=== PATIENT | female | born 1950 | race African-American/Black ===

== ENCOUNTER 2022-10-27 06:44 | Inpatient (IN) | payer OTHER ==
[2022-10-27] MEDS ORDERED: SODIUM CHLORIDE 500 ML IV STA (08:14)
[2022-10-27 08:47] LABS: BASO % 0.7 % (0-2.0); EOS % 0.1 % (0-4.5); HEMATOCRIT 18.8 % (32.4-45.2); LYMPH % 14.6 % (8-40); MCH 21.9 pg (25.7-33.7); MCHC 29.6 g/dl (32.0-36.0); MEAN PLT VOLUME 7.9 fl (7.5-11.1); MONO % 6.7 % (3.8-10.2); NEUT % 77.9 % (42.8-82.8); PLATELET COUNT 369 10^3/uL (134-434); RBC 2.54 M/mm3 (3.60-5.2); RDW 18.3 % (11.6-15.6); WHITE BLOOD COUNT 7.7 K/mm3 (4.0-10.0)
[2022-10-27 08:53] LABS: HEMOGLOBIN 5.6 GM/dL (10.7-15.3)
[2022-10-27 09:03] LABS: CALCIUM 9.6 mg/dL (8.5-10.1); POTASSIUM 4.4 mmol/L (3.5-5.1)
[2022-10-27 09:05] LABS: ALBUMIN 3.9 g/dl (3.4-5.0)
[2022-10-27 09:08] LABS: BLOOD UREA NITROGEN 30.3 mg/dL (7-18); CREATININE 1.6 mg/dL (0.55-1.3)
[2022-10-27 09:09] LABS: TOT PROT 6.5 g/dl (6.4-8.2)
[2022-10-27 09:10] LABS: BILIRUBIN,TOTAL 0.6 mg/dL (0.2-1)
[2022-10-27] MEDS ORDERED: ALBUTEROL SO4 2.5/IPRATROPIUM 0.5 INH SOL 3 ML VIAL.NEB. NEB ONE ×2 (09:28→09:34)
[2022-10-27 10:19] LABS: ANISOCYTOSIS 3+; MACROCYTOSIS 0; OVALOCYTE 1+; TARGET CELLS 1+
[2022-10-27 12:30] VITALS: BMI 21.2
[2022-10-27] MEDS ORDERED: ALBUTEROL SO4 HFA INHALER IH PRN (16:10)
[2022-10-27] MEDS: predniSONE 10 MG TABLET (UD) PO SCH (16:45)
[2022-10-27] MEDS: PANTOPRAZOLE 40 MG TABLET PO SCH (16:45)
[2022-10-27] MEDS: ATORVASTATIN CA 10 MG TABLET (FP) PO SCH (22:06)
[2022-10-28 09:12] LABS: BASO % 0.8 % (0-2.0); EOS % 0.3 % (0-4.5); HEMATOCRIT 25.6 % (32.4-45.2); HEMOGLOBIN 8.1 GM/dL (10.7-15.3); LYMPH % 24.7 % (8-40); MCH 24.3 pg (25.7-33.7); MCHC 31.6 g/dl (32.0-36.0); MEAN CELL VOLUME 76.9 fl (80-96); MEAN PLT VOLUME 7.9 fl (7.5-11.1); MONO % 9.7 % (3.8-10.2); NEUT % 64.5 % (42.8-82.8); PLATELET COUNT 309 10^3/uL (134-434); RBC 3.34 M/mm3 (3.60-5.2); RDW 20.2 % (11.6-15.6); WHITE BLOOD COUNT 8.8 K/mm3 (4.0-10.0)
[2022-10-28 09:15] LABS: INR 1.07 (0.83-1.09); PROTHROMBIN TIME (PATIENT) 12.4 SEC (9.7-13.0)
[2022-10-28 09:26] LABS: POTASSIUM 3.8 mmol/L (3.5-5.1)
[2022-10-28 09:35] LABS: ALBUMIN 3.6 g/dl (3.4-5.0)
[2022-10-28 09:37] LABS: BLOOD UREA NITROGEN 17.4 mg/dL (7-18)
[2022-10-28 09:40] LABS: BILIRUBIN,TOTAL 1.4 mg/dL (0.2-1); TOT PROT 6.3 g/dl (6.4-8.2)
[2022-10-28 09:47] LABS: CALCIUM 9.7 mg/dL (8.5-10.1)
[2022-10-28] MEDS: LISINOPRIL 20 MG TABLET PO SCH (09:54)
[2022-10-28] MEDS: amLODIPine BESYLATE 5 MG TABLET (FP) PO SCH (09:54)
[2022-10-28] MEDS: PANTOPRAZOLE 40 MG TABLET PO SCH (09:55)
[2022-10-28] MEDS: predniSONE 10 MG TABLET (UD) PO SCH (09:55)
[2022-10-28] MEDS ORDERED: PATIENT'S OWN MEDICATION (NON-FORMULARY) (Amlodipine Besylate/Benazepril [Lotrel 5-40 Mg C PO SCH (10:00)
[2022-10-28] MEDS ORDERED: PEG 3350/NA SULF BICARB CL/KCL 4000 ML SOLN.RECON PO ONE (14:50)
[2022-10-28] MEDS ORDERED: BISACODYL 5 MG TABLET.DR (FP) PO ONE (20:00)
[2022-10-28] MEDS ORDERED: IRON SUCROSE INJECTION 200 MG in SODIUM CHLORIDE 90 ML IVPB ONE (21:00)
[2022-10-28] MEDS: ATORVASTATIN CA 10 MG TABLET (FP) PO SCH (22:08)
[2022-10-29 08:32] LABS: BASO % 0.8 % (0-2.0); EOS % 2.1 % (0-4.5); HEMATOCRIT 25.7 % (32.4-45.2); HEMOGLOBIN 8.2 GM/dL (10.7-15.3); INR 1.16 (0.83-1.09); LYMPH % 26.1 % (8-40); MCH 24.1 pg (25.7-33.7); MEAN CELL VOLUME 75.5 fl (80-96); MEAN PLT VOLUME 7.8 fl (7.5-11.1); MONO % 10.8 % (3.8-10.2); NEUT % 60.2 % (42.8-82.8); PLATELET COUNT 301 10^3/uL (134-434); PROTHROMBIN TIME (PATIENT) 13.4 SEC (9.7-13.0); RBC 3.41 M/mm3 (3.60-5.2); RDW 20.6 % (11.6-15.6); WHITE BLOOD COUNT 8.3 K/mm3 (4.0-10.0)
[2022-10-29 08:50] LABS: POTASSIUM 3.7 mmol/L (3.5-5.1)
[2022-10-29 08:52] LABS: CALCIUM 9.5 mg/dL (8.5-10.1)
[2022-10-29 08:53] LABS: ALBUMIN 3.6 g/dl (3.4-5.0)
[2022-10-29 08:58] LABS: BILIRUBIN,TOTAL 1.2 mg/dL (0.2-1); TOT PROT 6.1 g/dl (6.4-8.2)
[2022-10-29] MEDS ORDERED: FENTANYL CITRATE/PF 50 MCG/ML VIAL ONE (09:20)
[2022-10-29] MEDS: LISINOPRIL 20 MG TABLET PO SCH (11:18)
[2022-10-29] MEDS: PANTOPRAZOLE 40 MG TABLET PO SCH (11:21)
[2022-10-29] MEDS: amLODIPine BESYLATE 5 MG TABLET (FP) PO SCH (11:21)
[2022-10-29] MEDS: predniSONE 5 MG TABLET (UD) PO SCH (11:21)
[2022-10-29] MEDS: ATORVASTATIN CA 10 MG TABLET (FP) PO SCH (22:15)
[2022-10-30 08:15] LABS: BASO % 0.6 % (0-2.0); EOS % 2.8 % (0-4.5); HEMATOCRIT 28.3 % (32.4-45.2); HEMOGLOBIN 8.9 GM/dL (10.7-15.3); LYMPH % 24.9 % (8-40); MCH 24.7 pg (25.7-33.7); MCHC 31.6 g/dl (32.0-36.0); MEAN CELL VOLUME 78.2 fl (80-96); MEAN PLT VOLUME 8.2 fl (7.5-11.1); MONO % 9.2 % (3.8-10.2); NEUT % 62.5 % (42.8-82.8); PLATELET COUNT 326 10^3/uL (134-434); RBC 3.62 M/mm3 (3.60-5.2); RDW 21.4 % (11.6-15.6); WHITE BLOOD COUNT 9.9 K/mm3 (4.0-10.0)
[2022-10-30] MEDS: predniSONE 5 MG TABLET (UD) PO SCH (10:52)
[2022-10-30] MEDS: PANTOPRAZOLE 40 MG TABLET PO SCH (10:52)
[2022-10-30] MEDS: amLODIPine BESYLATE 5 MG TABLET (FP) PO SCH (10:53)
[2022-10-30] MEDS: LISINOPRIL 20 MG TABLET PO SCH (10:53)
[2022-10-30] MEDS ORDERED: IRON SUCROSE INJECTION 200 MG in SODIUM CHLORIDE 90 ML IVPB ONE (14:00)
[2022-10-30] MEDS: ATORVASTATIN CA 10 MG TABLET (FP) PO SCH (22:13)
[2022-10-31 08:02] LABS: HEMATOCRIT 25.2 % (32.4-45.2); HEMOGLOBIN 7.9 GM/dL (10.7-15.3); MCH 24.4 pg (25.7-33.7); MCHC 31.3 g/dl (32.0-36.0); MEAN CELL VOLUME 77.9 fl (80-96); MEAN PLT VOLUME 7.9 fl (7.5-11.1); PLATELET COUNT 279 10^3/uL (134-434); RBC 3.24 M/mm3 (3.60-5.2); WHITE BLOOD COUNT 8.7 K/mm3 (4.0-10.0)
[2022-10-31 09:26] LABS: ANISOCYTOSIS 1+; MACROCYTOSIS 0
[2022-10-31] MEDS: PANTOPRAZOLE 40 MG TABLET PO SCH (10:39)
[2022-10-31] MEDS: LISINOPRIL 20 MG TABLET PO SCH (10:39)
[2022-10-31] MEDS: amLODIPine BESYLATE 5 MG TABLET (FP) PO SCH (10:39)
[2022-10-31] MEDS: predniSONE 5 MG TABLET (UD) PO SCH (10:40)
[2022-10-31] MEDS ORDERED: IRON SUCROSE INJECTION 200 MG in SODIUM CHLORIDE 90 ML IVPB ONE (12:30)
[2022-10-31] MEDS: ATORVASTATIN CA 10 MG TABLET (FP) PO SCH (22:18)
[2022-11-01 08:19] LABS: HEMATOCRIT 27.6 % (32.4-45.2); HEMOGLOBIN 8.6 GM/dL (10.7-15.3); MCH 24.2 pg (25.7-33.7); MEAN CELL VOLUME 78.2 fl (80-96); MEAN PLT VOLUME 7.7 fl (7.5-11.1); PLATELET COUNT 282 10^3/uL (134-434); RBC 3.53 M/mm3 (3.60-5.2); RDW 23.1 % (11.6-15.6)
[2022-11-01 09:03] LABS: ANISOCYTOSIS 1+; MACROCYTOSIS 0
[2022-11-01] MEDS: LISINOPRIL 20 MG TABLET PO SCH (09:51)
[2022-11-01] MEDS: amLODIPine BESYLATE 5 MG TABLET (FP) PO SCH (09:51)
[2022-11-01] MEDS: PANTOPRAZOLE 40 MG TABLET PO SCH (09:51)
[2022-11-01] MEDS: predniSONE 5 MG TABLET (UD) PO SCH (09:52)
[2022-11-01 13:34] VITALS: BP 150/76; PULSE 80; RESP 18; TEMP 98.4
== END 2022-11-01 13:30 | disposition home or self-care (01) | DRG 812 ==
LOC: JER 06:44 → JERBED 10:11 → J7W 11:53
PROVIDERS: ADMIT Internal Medicine; ATTEND Internal Medicine
PROC: 30233N1 Transfusion of Nonautologous Red Blood Cells into Peripheral Vein, Percutaneous Approach (ICD-10-PCS; 2022-10-27)
PROC: 0DB68ZX Excision of Stomach, Via Natural or Artificial Opening Endoscopic, Diagnostic (ICD-10-PCS; 2022-10-29)
PROC: 0DBK8ZZ Excision of Ascending Colon, Via Natural or Artificial Opening Endoscopic (ICD-10-PCS; 2022-10-29)
PROC: 0DBL8ZZ Excision of Transverse Colon, Via Natural or Artificial Opening Endoscopic (ICD-10-PCS; 2022-10-29)
PROC: 0DBM8ZZ Excision of Descending Colon, Via Natural or Artificial Opening Endoscopic (ICD-10-PCS; 2022-10-29)
PROC: 0DB98ZX Excision of Duodenum, Via Natural or Artificial Opening Endoscopic, Diagnostic (ICD-10-PCS; principal; 2022-10-29 09:00)
DX: D50.9 Iron deficiency anemia, unspecified (principal); J44.9 Chronic obstructive pulmonary disease, unspecified; I10 Essential (primary) hypertension; E78.5 Hyperlipidemia, unspecified; I35.0 Nonrheumatic aortic (valve) stenosis; K29.60 Other gastritis without bleeding; K64.8 Other hemorrhoids; K57.90 Diverticulosis of intestine, part unspecified, without perforation or abscess without bleeding; D12.4 Benign neoplasm of descending colon; D12.2 Benign neoplasm of ascending colon; D12.3 Benign neoplasm of transverse colon
CPT/HCPCS: 36415; 36430; 71045-TC-FY; 80053; 80061; 82272; 82607; 82728; 82746; 83540; 83550; 83880; 84484; 85025; 85610; 86850; 86900; 86901; 86922; 88305-TC; 93005; 93010; 99285-25; J1756; P9058